=== PATIENT | female | born 1955 | race Caucasian/White ===

== ENCOUNTER 2018-11-16 09:45 | Emergency (ER) | payer MEDICARE, OTHER ==
[2018-11-16] MEDS ORDERED: MAG HYDROX/AL HYDROX/SIMETH SUSP 30 ML UDCUP PO ONE (10:53)
[2018-11-16] MEDS ORDERED: LIDOCAINE 2% VISCOUS SOLN 20 ML UDCUP PO ONE (10:53)
[2018-11-16] MEDS ORDERED: METOCLOPRAMIDE HCL ORAL SOLN 10 MG/10 ML UDCUP PO ONE (10:53)
--- NOTE | 2018-11-16 10:54 | ER Document Report ---
ED Medical Screen (RME) <CORI RAND - Last Filed: 11/16/18 10:53> <CARISA COLLINS - Last Filed: 11/16/18 13:42> - General Chief Complaint: Chest Pain Stated Complaint: CHEST PAIN Time Seen by Provider: 11/16/18 10:46 Notes: 63 years old female with a history of anxiety presents today with 2-month history of lower sternal chest pain. Sometimes is persistent sometimes comes and goes. Not related to any food or any activities. Denies any left arm numbness tingling sensation nausea vomiting or palpitation. Denies any diaphoresis. Examination of the abdomen shows sharp tenderness over the epigastrium as well as right upper quadrant noted. Also lower sternal tenderness noted on palpation. (CORI RAND) - HPI Notes: 11/16/18 13:42 (CARISA COLLINS) - Related Data Allergies/Adverse Reactions: No Known Allergies Allergy (Verified 11/16/18 09:49) Past Medical History - Social History Frequency of alcohol use: None Drug Abuse: None Family history: CAD, CVA, Hyperlipidemia, Hypertension - Past Medical History Cardiac Medical History: Reports: Hx Hypertension Renal/ Medical History: Denies: Hx Peritoneal Dialysis Psychiatric Medical History: Reports: Hx Anxiety, Hx Bipolar Disorder, Hx Depression Past Surgical History: Reports: Hx Breast Surgery, Hx Hysterectomy - Immunizations Immunizations up to date: Yes Hx Diphtheria, Pertussis, Tetanus Vaccination: Yes <CORI RADN - Last Filed: 11/16/18 10:53> - Vital signs Vitals: Temp Pulse Resp BP Pulse Ox 98.3 F 55 L 20 176/109 H 100 11/16/18 10:13 11/16/18 10:13 11/16/18 10:13 11/16/18 10:13 11/16/18 10:13 Course - Laboratory Result Diagrams: 11/16/18 11:45 11/16/18 11:45 <CARISA COLLINS - Last Filed: 11/16/18 13:42> - Re-evaluation Re-evalutation: 11/16/18 13:20 Vitals reviewed. Nursing notes reviewed. Patient is currently asymptomatic. Her EKG is unchanged from February 2013. (CARISA COLLINS) - Vital Signs Vital signs: Temp Pulse Resp BP Pulse Ox 98.3 F 55 L 20 176/109 H 100 11/16/18 10:13 11/16/18 10:13 11/16/18 10:13 11/16/18 10:13 11/16/18 10:13 - Laboratory Laboratory results interpreted by me: 11/16/18 11/16/18 11:45 11:45 RDW 14.8 H Carbon Dioxide 31 H Calcium 10.3 H - EKG Interpretation by Me Additional EKG results interpreted by me: 11/16/18 13:20 Interpreted by myself [id number]: Normal sinus rhythm, rate 59, normal axis, no ectopy, no STEMI, unchanged from 02/14/13 (CARISA COLLINS) Doctor's Discharge <CORI RAND - Last Filed: 11/16/18 10:53> <CARISA COLLINS - Last Filed: 11/16/18 13:42> - Discharge Clinical Impression: Chest pain Qualifiers: Chest pain type: unspecified Qualified Code(s): R07.9 - Chest pain, unspecified Referrals: LUIS BENSON MD [ACTIVE STAFF] - Follow up as needed
--- NOTE | 2018-11-16 11:45 | RADIOLOGY REPORT (SQ) ---
EXAM DESCRIPTION: CHEST SINGLE VIEW COMPLETED DATE/TIME: 11/16/2018 11:27 am REASON FOR STUDY: Chest pain COMPARISON: None. EXAM PARAMETERS: NUMBER OF VIEWS: One view. TECHNIQUE: Single frontal radiographic view of the chest acquired. RADIATION DOSE: NA LIMITATIONS: AP portable. Positioning. FINDINGS: LUNGS AND PLEURA: No opacities, masses or pneumothorax. No pleural effusion. MEDIASTINUM AND HILAR STRUCTURES: No masses. Contour normal. HEART AND VASCULAR STRUCTURES: Heart normal in size for technique. Normal vasculature. BONES: No acute findings. HARDWARE: None in the chest. OTHER: No other significant finding. IMPRESSION: NO ACUTE RADIOGRAPHIC FINDING IN THE CHEST. TECHNICAL DOCUMENTATION: JOB ID: [id number] [employer]- All Rights Reserved Reading location - IP/workstation name: [email or web address]
[2018-11-16 12:02] LABS: ABSOLUTE BASOPHILS # (AUTO) 0.1 10^3/uL (0.0-0.2); ABSOLUTE EOSINOPHILS # (AUTO) 0.3 10^3/uL (0.0-0.6); ABSOLUTE LYMPHOCYTES (AUTO) 2.7 10^3/uL (0.5-4.7); ABSOLUTE MONOCYTES (AUTO) 0.6 10^3/uL (0.1-1.4); ABSOLUTE NEUT (AUTO) 4.4 10^3/uL (1.7-8.2); BASOPHILS % (AUTO) 0.9 % (0-2); EOSINOPHILS % (AUTO) 3.3 % (0-6); HEMATOCRIT 43.2 % (36.0-47.0); HEMOGLOBIN 14.8 g/dL (12.0-15.5); LYMPHOCYTES % (AUTO) 33.9 % (13-45); MEAN CORPUSCULAR HEMOGLOBIN 28.7 pg (27.0-33.4); MEAN CORPUSCULAR HGB CONC 34.3 g/dL (32.0-36.0); MEAN CORPUSCULAR VOLUME 84 fl (80-97); MONOCYTES % (AUTO) 7.3 % (3-13); PLATELET COUNT 237 10^3/uL (150-450); RED BLOOD COUNT 5.17 10^6/uL (3.72-5.28); RED CELL DISTRIBUTION WIDTH 14.8 % (11.5-14.0); SEGMENTED NEUTROPHILS % (AUTO) 54.6 % (42-78); TOTAL CELLS COUNTED % (AUTO) 100 %; WHITE BLOOD COUNT 8.1 10^3/uL (4.0-10.5)
[2018-11-16 12:19] LABS: ALANINE AMINOTRANSFERASE 21 U/L (9-52); ALBUMIN 4.6 g/dL (3.5-5.0); ALKALINE PHOSPHATASE 79 U/L (38-126); ANION GAP 9 (5-19); ASPARTATE AMINO TRANSFERASE 21 U/L (14-36); BILIRUBIN,DIRECT 0.1 mg/dL (0.0-0.4); BILIRUBIN,TOTAL 0.3 mg/dL (0.2-1.3); BLOOD UREA NITROGEN 13 mg/dL (7-20); CALCIUM 10.3 mg/dL (8.4-10.2); CARBON DIOXIDE 31 mmol/L (22-30); CHLORIDE 100 mmol/L (98-107); CREATINE KINASE 38 U/L (30-135); GLUCOSE 92 mg/dL (75-110); SODIUM 140.2 mmol/L (137-145); TOTAL PROTEIN 7.1 g/dL (6.3-8.2)
[2018-11-16 12:31] LABS: TROPONIN I < 0.012 ng/mL
--- NOTE | 2018-11-16 12:53 | EKG REPORT ---
SEVERITY:- BORDERLINE ECG - SINUS RHYTHM NONSPECIFIC ST-T CHANGES- INFERIOR LEADS (LEADS III AND AVF).UNCHANGED FROM 02/14/13. : Confirmed by: Juvencio Barillas MD 16-Nov-2018 12:52:42
--- NOTE | 2018-11-16 13:19 | RADIOLOGY REPORT (SQ) ---
EXAM DESCRIPTION: U/S ABDOMEN LIMITED W/O DOP COMPLETED DATE/TIME: 11/16/2018 12:39 pm REASON FOR STUDY: Gallbladder disease COMPARISON: None. TECHNIQUE: Dynamic and static grayscale images acquired of the abdomen and recorded on PACS. Additio nal selected color Doppler and spectral images recorded. LIMITATIONS: None. FINDINGS: PANCREAS: No masses. Visualized pancreatic duct normal caliber. LIVER: No masses. Echotexture normal. LIVER VASCULATURE: Normal directional flow of the main portal vein and hepatic veins. GALLBLADDER: No stones. Normal wall thickness. No pericholecystic fluid. ULTRASOUND-DETECTED ADKINS'S SIGN: Negative. INTRAHEPATIC DUCTS AND COMMON DUCT: CBD and intrahepatic ducts normal caliber. No filling defects. INFERIOR VENA CAVA: Normal flow. AORTA: No aneurysm. RIGHT KIDNEY: Normal size. Normal echogenicity. No solid or suspicious masses. No hydronephrosis. No calcifications. PERITONEAL AND RIGHT PLEURAL SPACE: No ascites or effusions. OTHER: No other significant findings. IMPRESSION: NORMAL RIGHT UPPER QUADRANT ULTRASOUND. TECHNICAL DOCUMENTATION: JOB ID: [id number] [employer]- All Rights Reserved Reading location - IP/workstation name: [email or web address]
--- NOTE | 2018-11-16 13:54 | ER Document Report ---
ED General - General Chief Complaint: Chest Pain Stated Complaint: CHEST PAIN Time Seen by Provider: 11/16/18 10:46 - HPI Notes: Patient is a 63-year-old female that presents to the emergency department for chief complaint of chest tightness. Patient reports chest tightness for the last 2-3 months. She states that it lasts for anywhere from a few minutes to an hour at a time. The pain has been happening almost daily for the last 2 months. She denies any change in the pain today. She denies any aggravating or relieving factors. She has some associated epigastric discomfort and nausea but denies any vomiting, fevers, ch ills, shortness of breath, and palpitations. She had a negative stress test 5 years ago. She has an appointment with cardiology on 11/24/18. Past Medical History: Bipolar, hypertension Past Surgical History: Breast augmentation, hysterectomy Social History: Daily tobacco. Denies drugs and alcohol Family History: Reviewed and noncontributory for presenting illness Allergies: Reviewed, see documented allergy list. REVIEW OF SYSTEMS: CONSTITUTIONAL : No fever No chills No diaphoresis No recent illness EENT: No vision changes No congestion No sore throat CARDIOVASCULAR: chest pain No palpitations RESPIRATORY: No shortness of breath No cough No difficulty breathing GASTROINTESTINAL: No abdominal pain nausea No vomiting No diarrhea GENITOURINARY: No dysuria No hematuria No difficulty urinating MUSCULOSKELETAL: No back pain No leg pain No arm pain SKIN: No rashes No lesions LYMPHATIC: No swollen, enlarged glands. NEUROLOGICAL: No lightheadedness No headache No weakness No paresthesias PSYCHIATRIC: No anxiety No depression PHYSICAL EXAMINATION: Vital signs reviewed, nursing noted reviewed. GENERAL: Well-appearing, well-nourished and in no acute distress. HEAD: Atraumatic, normocephalic. EYES: Eyes appear normal, extraocular movements intact, sclera anicteric, conjunctiva are normal. ENT: nares patent, oropharynx clear without exudates. Moist mucous membranes. NECK: Normal range of motion, supple without lymphadenopathy LUNGS: Breath sounds clear to auscultation bilaterally and equal. No wheezes rales or rhonchi. HEART: Regular rate and rhythm without murmurs ABDOMEN: Soft, nontender, normoactive bowel sounds. No rebound, guarding, or rigidity. No masses appreciated. EXTREMITIES: Nontender, good range of motion, no pitting or edema. NEUROLOGICAL: No focal neurological deficits. Moves all extremities spontaneously Motor and sensory grossly intact on exam. PSYCH: Normal mood, normal affect. SKIN: Warm, Dry, normal turgor, no rashes or lesions noted on exposed skin - Related Data Allergies/Adverse Reactions: No Known Allergies Allergy (Verified 11/16/18 09:49) Past Medical History - Social History Smoking Status: Current Every Day Smoker Frequency of alcohol use: None Drug Abuse: None Family History: CAD, CVA, Hypertension Patient has suicidal ideation: No Patient has homicidal ideation: No - Past Medical History Cardiac Medical History: Reports: Hx Hypertension Renal/ Medical History: Denies: Hx Peritoneal Dialysis Psychiatric Medical History: Reports: Hx Anxiety, Hx Bipolar Disorder, Hx Depression Past Surgical History: Reports: Hx Breast Surgery, Hx Hysterectomy - Immunizations Immunizations up to date: Yes Hx Diphtheria, Pertussis, Tetanus Vaccination: Yes Physical Exam - Vital signs Vitals: Temp Pulse Resp BP Pulse Ox 98.3 F 55 L 20 176/109 H 100 11/16/18 10:13 11/16/18 10:13 11/16/18 10:13 11/16/18 10:13 11/16/18 10:13 Course - Re-evaluation Re-evalutation: 11/16/18 13:56 Vitals reviewed. Nursing notes reviewed. EKG unchanged from 2013. Patient is currently asymptomatic. 11/16/18 16:00 Patient's initial lab work was unremarkable. Her troponin was negative. Chest x-ray showed no acute process. Patient's pain was epigastric and right upper quadrant ultrasound was ordered in triage, this was also negative. Patient symptoms have been ongoing for the last few months however they have been intermittent in nature. Repeat troponin was ordered and has remained negative. Patient's blood pressure has been significantly elevated throughout her stay here. She is on the maximum dose of enalapril and atenolol. She is also taking amlodipine. Patient was given 1 extra dose of amlodipine in the emergency room for her blood pressure. She has an appointment with cardiology on 11/24/18 and was encouraged to keep that appointment for blood pressure recheck and change in medications. She will also discuss getting a stress test done as an outpatient. I do not feel her symptoms currently are acute ACS. She is currently asymptomatic and will be discharged home in stable condition. Chest X-Ray 11/16/18 10:52 IMPRESSION: NO ACUTE RADIOGRAPHIC FINDING IN THE CHEST. Abdomen Ultrasound 11/16/18 10:53 IMPRESSION: NORMAL RIGHT UPPER QUADRANT ULTRASOUND. Laboratory 11/16/18 11/16/18 11/16/18 11:45 11:45 11:45 WBC 8.1 RBC 5.17 Hgb 14.8 Hct 43.2 MCV 84 MCH 28.7 MCHC 34.3 RDW 14.8 H Plt Count 237 Seg Neutrophils % 54.6 Lymphocytes % 33.9 Monocytes % 7.3 Eosinophils % 3.3 Basophils % 0.9 Absolute Neutrophils 4.4 Absolute Lymphocytes 2.7 Absolute Monocytes 0.6 Absolute Eosinophils 0.3 Absolute Basophils 0.1 Sodium 140.2 Potassium 4.0 Chloride 100 Carbon Dioxide 31 H Anion Gap 9 BUN 13 Creatinine 0.81 Est GFR ( Amer) > 60 Est GFR (Non-Af Amer) > 60 Glucose 92 Calcium 10.3 H Total Bilirubin 0.3 Direct Bilirubin 0.1 Neonat Total Bilirubin Not Reportable Neonat Direct Bilirubin Not Reportable Neonat Indirect Bili Not Reportable AST 21 ALT 21 Alkaline Phosphatase 79 Creatine Kinase 38 CK-MB (CK-2) 0.50 Troponin I < 0.012 Total Protein 7.1 Albumin 4.6 Lipase 11/16/18 11/16/18 11:45 14:40 WBC RBC Hgb Hct MCV MCH MCHC RDW Plt Count Seg Neutrophils % Lymphocytes % Monocytes % Eosinophils % Basophils % Absolute Neutrophils Absolute Lymphocytes Absolute Monocytes Absolute Eosinophils Absolute Basophils Sodium Potassium Chloride Carbon Dioxide Anion Gap BUN Creatinine Est GFR ( Amer) Est GFR (Non-Af Amer) Glucose Calcium Total Bilirubin Direct Bilirubin Neonat Total Bilirubin Neonat Direct Bilirubin Neonat Indirect Bili AST ALT Alkaline Phosphatase Creatine Kinase CK-MB (CK-2) Troponin I < 0.012 Total Protein Albumin Lipase 66.5 11/16/18 16:01 - Vital Signs Vital signs: Temp Pulse Resp BP Pulse Ox 98.3 F 55 L 20 208/108 H 95 11/16/18 10:13 11/16/18 10:13 11/16/18 15:08 11/16/18 15:42 11/16/18 15:08 - Laboratory Result Diagrams: 11/16/18 11:45 11/16/18 11:45 Laboratory results interpreted by me: 11/16/18 11/16/18 11:45 11:45 RDW 14.8 H Carbon Dioxide 31 H Calcium 10.3 H - EKG Interpretation by Me Additional EKG results interpreted by me: 11/16/18 13:55 Interpreted by myself [id number]: Normal sinus rhythm, rate 59, normal axis, no ectopy, no STEMI, no significant change from 08/10/13 Discharge - Discharge Clinical Impression: Chest pain Qualifiers: Chest pain type: unspecified Qualified Code(s): R07.9 - Chest pain, unspecified Hypertension Qualifiers: Hypertension type: unspecified Qualified Code(s): I10 - Essential (primary) hypertension Condition: Stable Disposition: HOME, SELF-CARE Instructions: Anxiety ([facility]), Chest Pain of Unclear Cause ([facility]) Additional Instructions: Please return to the emergency department if you have any worsening, or concern of your symptoms. Please return to the emergency department if you develop chest pain, difficulty breathing, severe abdominal pain, or ongoing vomiting. Please follow-up with your primary care physician in 2-3 days and any other recommended physicians. If prescribed, take all medications as directed. If you have any questions or concerns do not hesitate to return the emergency department for evaluation. Keep your appointment on November 24 with [facility] for follow-up and to discuss your blood pressure medications Forms: Elevated Blood Pressure Referrals: LUIS BENSON MD [ACTIVE STAFF] - Follow up as needed
[2018-11-16] MEDS ORDERED: AMLODIPINE BESYLATE 5 MG TABLET PO ONE (15:33)
[2018-11-16 15:43] VITALS: BP 208/108
== END 2018-11-16 16:25 | disposition home or self-care (01) ==
LOC: ER 09:45
DX: R07.9 Chest pain, unspecified (principal); I10 Essential (primary) hypertension; R10.13 Epigastric pain; R11.0 Nausea; F17.200 Nicotine dependence, unspecified, uncomplicated
CPT/HCPCS: 93005; 99285; 36415; 82553; 82550; 83690; 85025; 80053; 84484; 71045; 76705; 93010; J3490; A9270 ×2

== ENCOUNTER 2020-01-03 15:21 | Emergency (ER) | payer MEDICARE, OTHER ==
--- NOTE | 2020-01-03 15:51 | ER Document Report ---
ED Medical Screen (RME) - General Chief Complaint: Headache Stated Complaint: HEADACHE,DIZZINESS Time Seen by Provider: 01/03/20 15:41 Primary Care Provider: MORENITA KNOWLES MD [Primary Care Provider] - Follow up as needed TRAVEL OUTSIDE OF THE [place] IN LAST 30 DAYS: No - HPI Notes: 01/03/20 15:48 Patient is a 64-year-old female with a history of mental health disorders prese nts with spouse with concern of altered mental status with last known normal sometime between 10 AM and 12 PM today. states that she was out on a walk and fell 3 times to the ground which was witnessed. Patient did not hit her head or lose consciousness. Patient has been altered since then. Patient was complaining of dizziness at the time as well is having some chest pains. Patient states that she is currently feeling well and has no pain at all. Spouse states that she is generally back to baseline, but is having some memory issues and some speech issues. I have treated and performed a rapid initial assessment of this patient. A comprehensive ED assessment and evaluation of the patient, analysis of test results and completion of medical decision making process will be conducted by additional ED providers. PHYSICAL EXAMINATION: GENERAL: Well-appearing, well-nourished and in no acute distress. A&O to person/place/time, but cannot recall some events today (i.e. eating lunch etc). Answers questions appropriately. Head: Atraumatic, no reeves sign or bogginess Ears: No hemotympanum Eyes: No raccoon eyes, PERRLA, EOMI bilaterally. MS: pt is ambulating w/o any difficulty or report of pain Neuro: NIH 1 for some slurring of speech, GCS 15, cranial nerves grossly intact. - Related Data Allergies/Adverse Reactions: No Known Allergies Allergy (Verified 05/15/19 09:41) Past Medical History - Social History Family history: CAD, CVA, Hyperlipidemia, Hypertension - Past Medical History Cardiac Medical History: Reports: Hx Hypertension - TAKES BETA EVELYN Denies: Hx Coronary Artery Disease, Hx Heart Attack Pulmonary Medical History: Denies: Hx Asthma, Hx Bronchitis, Hx COPD, Hx Pneumonia Neurological Medical History: Denies: Hx Cerebrovascular Accident, Hx Seizures Renal/ Medical History: Denies: Hx Peritoneal Dialysis Musculoskeltal Medical History: Denies Hx Arthritis Psychiatric Medical History: Reports: Hx Anxiety, Hx Bipolar Disorder, Hx Depression Past Surgical History: Reports: Hx Breast Surgery, Hx Hysterectomy - Immunizations Immunizations up to date: Yes Hx Diphtheria, Pertussis, Tetanus Vaccination: Yes Physical Exam - Vital signs Vitals: Temp Pulse Resp BP Pulse Ox 97.4 F 54 L 18 152/99 H 96 01/03/20 15:29 01/03/20 15:29 01/03/20 15:29 01/03/20 15:29 01/03/20 15:29 Course - Vital Signs Vital signs: Temp Pulse Resp BP Pulse Ox 97.4 F 54 L 18 152/99 H 96 01/03/20 15:29 01/03/20 15:29 01/03/20 15:29 01/03/20 15:29 01/03/20 15:29 Doctor's Discharge - Discharge Referrals: MORENITA KNOWLES MD [Primary Care Provider] - Follow up as needed
--- NOTE | 2020-01-03 16:19 | RADIOLOGY REPORT (SQ) ---
EXAM DESCRIPTION: CHEST 2 VIEWS COMPLETED DATE/TIME: 01/03/2020 4:03 pm REASON FOR STUDY: AMS, CP COMPARISON: AP view of the chest from 11/16/2018 EXAM PARAMETERS: NUMBER OF VIEWS: Two views. TECHNIQUE: An AP view of the chest was obtained.. RADIATION DOSE: NA LIMITATIONS: none FINDINGS: LUNGS AND PLEURA: No consolidation, pleural effusion or pneumothorax. MEDIASTINUM AND HILAR STRUCTURES: No mediastinal or hilar contour abnormality. HEART AND VASCULAR STRUCTURES: The cardiac silhouette and pulmonary vasculature are within normal gomes its. BONES: No acute findings. HARDWARE: None in the chest. OTHER: No other finding. IMPRESSION: No acute cardiopulmonary process. TECHNICAL DOCUMENTATION: JOB ID: [id number] 2010 [employer]- All Rights Reserved Reading location - IP/workstation name: [email or web address]
--- NOTE | 2020-01-03 16:20 | RADIOLOGY REPORT (SQ) ---
EXAM DESCRIPTION: CT HEAD WITHOUT COMPLETED DATE/TIME: 01/03/2020 4:00 pm REASON FOR STUDY: altered mental status, falls COMPARISON: None. TECHNIQUE: Axial images acquired through the brain without intravenous contrast. Images reviewed wi th bone, brain and subdural windows. Additional sagittal and coronal reconstructions were generated. Images stored on PACS. All CT scanners at this facility use dose modulation, iterative reconstruction, and/or weight based d osing when appropriate to reduce radiation dose to as low as reasonably achievable (ALARA). [facility]: Dose Right [facility]: CareDose [facility]: Dose Right [facility]: Teradose 4D [facility]: [employer] RADIATION DOSE: mGy. LIMITATIONS: None. FINDINGS: VENTRICLES: Normal size and contour. CEREBRUM: Mild cortical atrophy. No masses. No hemorrhage. No midline shift. No evidence for acut e infarction. Areas of low density in the white matter most likely chronic small vessel ischemic sanchez ges. CEREBELLUM: No masses. No hemorrhage. No alteration of density. No evidence for acute infarction. EXTRAAXIAL SPACES: No fluid collections. No masses. ORBITS AND GLOBE: No intra- or extraconal masses. Normal contour of globe without masses. CALVARIUM: No fracture. PARANASAL SINUSES: No fluid or mucosal thickening. SOFT TISSUES: No mass or hematoma. OTHER: No other significant finding. IMPRESSION: Involutional changes with mild chronic microvascular ischemia. No acute intracranial im aging finding. EVIDENCE OF ACUTE STROKE: NO. COMMENT: Quality ID # [id number]: Final reports with documentation of one or more dose reduction techniques (e.g., Automated exposure control, adjustment of the mA and/or kV according to patient size, use of iterative reconstruction technique) TECHNICAL DOCUMENTATION: JOB ID: [id number] 2010 [employer]- All Rights Reserved Reading location - IP/workstation name: [email or web address]
--- NOTE | 2020-01-03 16:24 | RADIOLOGY REPORT (SQ) ---
EXAM DESCRIPTION: CT CERVICAL SPINE WITHOUT COMPLETED DATE/TIME: 01/03/2020 4:00 pm REASON FOR STUDY: altered mental status, falls COMPARISON: None. TECHNIQUE: Axial images acquired through the cervical spine without intravenous contrast. Images re viewed with lung, soft tissue and bone windows. Reconstructed coronal and sagittal MPR images review ed. Images stored on PACS. All CT scanners at this facility use dose modulation, iterative reconstruction, and/or weight based d osing when appropriate to reduce radiation dose to as low as reasonably achievable (ALARA). [facility]: Dose Right [facility]: CareDose [facility]: Dose Right [facility]: Teradose 4D [facility]: [employer] RADIATION DOSE: CT Rad equipment meets quality standard of care and radiation dose reduction techniq ues were employed. CTDIvol: 22.7 - 53.2 mGy. DLP: 1498 mGy-cm. LIMITATIONS: None. FINDINGS: ALIGNMENT: Anatomic. MINERALIZATION: Normal. VERTEBRAL BODIES: The cervical vertebral body heights are preserved. There is no fracture. DISCS: Evaluation of the spinal canal for stenosis or cord compression is limited due to the absence of intrathecal contrast. The cervical intervertebral disc spaces are preserved. FACETS, LATERAL MASSES, POSTERIOR ELEMENTS: No acute fracture or malalignment. HARDWARE: None in the spine. VISUALIZED RIBS: No fractures. LUNG APICES AND SOFT TISSUES: The right lobe of the thyroid gland is heterogeneous. OTHER: No other finding. IMPRESSION: No acute fracture or malalignment of the cervical spine. TECHNICAL DOCUMENTATION: JOB ID: [id number] Quality ID # [id number]: Final reports with documentation of one or more dose reduction techniques (e.g., Au tomated exposure control, adjustment of the mA and/or kV according to patient size, use of iterative reconstruction technique) 2010 [employer]- All Rights Reserved Reading location - IP/workstation name: [email or web address]
[2020-01-03 16:41] LABS: ABSOLUTE BASOPHILS # (AUTO) 0.1 10^3/uL (0.0-0.2); ABSOLUTE EOSINOPHILS # (AUTO) 0.1 10^3/uL (0.0-0.6); ABSOLUTE LYMPHOCYTES (AUTO) 2.9 10^3/uL (0.5-4.7); ABSOLUTE MONOCYTES (AUTO) 0.7 10^3/uL (0.1-1.4); ABSOLUTE NEUT (AUTO) 4.2 10^3/uL (1.7-8.2); BASOPHILS % (AUTO) 0.8 % (0-2); EOSINOPHILS % (AUTO) 1.7 % (0-6); HEMATOCRIT 40.2 % (36.0-47.0); HEMOGLOBIN 13.6 g/dL (12.0-15.5); LYMPHOCYTES % (AUTO) 36.1 % (13-45); MEAN CORPUSCULAR HEMOGLOBIN 28.4 pg (27.0-33.4); MEAN CORPUSCULAR HGB CONC 33.7 g/dL (32.0-36.0); MEAN CORPUSCULAR VOLUME 84 fl (80-97); PLATELET COUNT 213 10^3/uL (150-450); RED BLOOD COUNT 4.77 10^6/uL (3.72-5.28); RED CELL DISTRIBUTION WIDTH 15.5 % (11.5-14.0); SEGMENTED NEUTROPHILS % (AUTO) 52.4 % (42-78); TOTAL CELLS COUNTED % (AUTO) 100 %
[2020-01-03 16:50] LABS: APPEARANCE,URINE CLEAR; BILIRUBIN,URINE NEGATIVE (NEGATIVE); COLOR,URINE YELLOW; GLUCOSE, URINE NEGATIVE (NEGATIVE); KETONES,URINE NEGATIVE (NEGATIVE); PROTEIN,URINE NEGATIVE (NEGATIVE); URINE SPECIFIC GRAVITY 1.013; UROBILINOGEN,URINE NEGATIVE mg/dL (<2.0)
[2020-01-03 16:56] LABS: ALBUMIN 4.5 g/dL (3.5-5.0); ALKALINE PHOSPHATASE 86 U/L (38-126); ANION GAP 7 (5-19); ASPARTATE AMINO TRANSFERASE 27 U/L (14-36); BILIRUBIN,TOTAL 0.4 mg/dL (0.2-1.3); BLOOD UREA NITROGEN 25 mg/dL (7-20); CALCIUM 9.8 mg/dL (8.4-10.2); CARBON DIOXIDE 32 mmol/L (22-30); CHLORIDE 101 mmol/L (98-107); GLUCOSE 94 mg/dL (75-110); POTASSIUM 4.4 mmol/L (3.6-5.0); TOTAL PROTEIN 7.2 g/dL (6.3-8.2)
[2020-01-03 17:22] LABS: URINE AMPHETAMINES SCREEN NEGATIVE; URINE BARBITURATES SCREEN NEGATIVE; URINE COCAINE SCREEN NEGATIVE; URINE MARIJUANA (THC) SCREEN NEGATIVE; URINE METHADONE SCREEN NEGATIVE; URINE PHENCYCLIDINE SCREEN NEGATIVE
[2020-01-03 17:27] LABS: URINE BENZODIAZEPINES SCREEN UNCONFIRMED POSITIVE
--- NOTE | 2020-01-03 18:00 | ER Document Report ---
ED General - General Chief Complaint: Headache Stated Complaint: HEADACHE,DIZZINESS Time Seen by Provider: 01/03/20 15:41 Primary Care Provider: MORENITA KNOWLES MD [Primary Care Provider] - Follow up as needed Information source: Patient Notes: Patient is a 64-year-old female presenting to the emergency department chief complaint of headache. TRAVEL OUTSIDE OF THE [place] IN LAST 30 DAYS: No - HPI Onset: This morning Onset/Duration: Gradual, Better Quality of pain: Achy Severity: Mild Pain Level: 1 Associated symptoms: None Exacerbated by: Denies Relieved by: Denies Similar symptoms previously: No Recently seen / treated by doctor: No - Related Data Allergies/Adverse Reactions: No Known Allergies Allergy (Verified 05/15/19 09:41) Home Medications: Xanax, Depakote, Trazadone, Cogentin, Geodone, Zoloft, Amlodipine, Enalapril, Lipitos, Aspirin, Clonidine. Past Medical History - General Information source: Patient, Relative - Social History Smoking Status: Former Smoker Frequency of alcohol use: None Drug Abuse: None Lives with: Spouse/Significant other Family History: CAD, CVA, Hypertension Patient has suicidal ideation: No Patient has homicidal ideation: No - Past Medical History Cardiac Medical History: Reports: Hx Hypertension - TAKES BETA EVELYN Denies: Hx Coronary Artery Disease, Hx Heart Attack Pulmonary Medical History: Denies: Hx Asthma, Hx Bronchitis, Hx COPD, Hx Pneumonia Neurological Medical History: Denies: Hx Cerebrovascular Accident, Hx Seizures Renal/ Medical History: Denies: Hx Peritoneal Dialysis Musculoskeletal Medical History: Denies Hx Arthritis Psychiatric Medical History: Reports: Hx Anxiety, Hx Bipolar Disorder, Hx Depression Past Surgical History: Reports: Hx Breast Surgery, Hx Hysterectomy - Immunizations Immunizations up to date: Yes Hx Diphtheria, Pertussis, Tetanus Vaccination: Yes Review of Systems - Review of Systems Notes: REVIEW OF SYSTEMS: CONSTITUTIONAL : Denies fever, chills, or sweats. Denies recent illness. EENT: Denies eye, ear, throat, or mouth pain or symptoms. Denies nasal or sinus congestion. CARDIOVASCULAR: Denies chest pain. RESPIRATORY: Denies cough, cold, or chest congestion. Denies shortness of breath, difficulty breathing, or wheezing. GASTROINTESTINAL: Denies abdominal pain. Denies nausea, vomiting, or diarrhea. Denies constipation. GENITOURINARY: Denies difficulty urinating, painful urination, burning, frequency, or blood in urine. MUSCULOSKELETAL: Per HPI SKIN: Denies rash or skin lesions. HEMATOLOGIC : Denies easy bruising or bleeding. NEUROLOGICAL: Per HPI PSYCHIATRIC: Denies suicidal or homicidal ideations 10 Systems are negative unless otherwise specified above Physical Exam - Vital signs Vitals: Temp Pulse Resp BP Pulse Ox 97.4 F 54 L 18 152/99 H 96 01/03/20 15:29 01/03/20 15:29 01/03/20 15:29 01/03/20 15:29 01/03/20 15:29 - Notes Notes: PHYSICAL EXAMINATION: GENERAL: Well-appearing, well-nourished and in no acute distress. HEAD: Atraumatic, normocephalic. EYES: Pupils equal round and reactive to light, extraocular movements intact, sclera anicteric, conjunctiva are normal. ENT: nares patent, oropharynx clear without exudates. Moist mucous membranes. NECK: Normal range of motion, supple without lymphadenopathy, no appreciable JVD LUNGS: Lungs clear to auscultation bilaterally and equal. No wheezes rales or rhonchi. HEART: Regular rate and rhythm without murmurs ABDOMEN: Soft, nontender, normal bowel sounds. No guarding, no rebound. No masses appreciated. EXTREMITIES: Active full range of motion, no pitting or edema. No cyanosis. 2+ pulses x4 NEUROLOGICAL: No focal neurological deficits. Moves all extremities spontaneously and on command. Patient does show bilateral lower extremity weakness however states that she does have difficulties with her lower extremities. Patient is able to identify all family members in the room. There is no nystagmus no facial asymmetry no part tongue protrusion deviation patient is alert and oriented x3 Suhail Coma Scale of 15. SKIN: Warm, Dry, and intact. Normal turgor, no rashes or lesions noted. Course - Re-evaluation Re-evalutation: 01/03/20 17:59 Laboratory and radiologic studies have been reviewed. I did discuss with patient and family the possibility of intracranial pathology such as TIA versus CVA however family states that they believe the patient would be very uncomfortable in the hospital and would not get any rest at this time since all the labs and radiologic studies are negative they are requesting discharge home. The patient is alert and oriented can name all family members in the room and I feel this is a viable option. They are instructed to return to the emergency department for worsening symptoms. I also advised a follow-up with her primary care and their mental health provider for further discussion of use of her Xanax which is prescribed. Patient will be discharged in stable condition. 01/03/20 19:02 - Vital Signs Vital signs: Temp Pulse Resp BP Pulse Ox 97.4 F 54 L 6 L 152/99 H 98 01/03/20 15:29 01/03/20 15:29 01/03/20 17:24 01/03/20 15:29 01/03/20 17:24 - Laboratory Result Diagrams: 01/03/20 16:17 01/03/20 16:17 Laboratory results interpreted by me: 01/03/20 01/03/20 16:17 16:17 RDW 15.5 H Carbon Dioxide 32 H BUN 25 H - Diagnostic Test Radiology reviewed: Reports reviewed - EKG Interpretation by Me EKG shows normal: Sinus rhythm Rate: Normal Rhythm: NSR When compared to previous EKG there are: No significant change Discharge - Discharge Clinical Impression: Accelerated hypertension, Medication side effect Accidental fall Qualifiers: Encounter type: initial encounter Qualified Code(s): W19.XXXA - Unspecified fa ll, initial encounter Headache Qualifiers: Headache type: other headache syndrome Qualified Code(s): G44.89 - Other headache syndrome Condition: Stable Disposition: HOME, SELF-CARE Additional Instructions: Follow-up with your primary care provider in the next couple of days please keep your mental health appointment in 3 weeks as scheduled. Recommend decreasing your caffeine intake I believe that the reason for the fall today may have been secondary to Xanax use and generalized weakness. I think your headache is secondary to elevated blood pressure please make sure you take your medications appropriately. Please return to the emergency department for worsening symptoms. Referrals: MORENITA KNOWLES MD [Primary Care Provider] - Follow up as needed
[2020-01-03 19:01] VITALS: BP 188/118
--- NOTE | 2020-01-03 19:44 | EKG REPORT ---
SEVERITY:- NORMAL ECG - SINUS RHYTHM : Confirmed by: Hortensia Lane MD 03-Jan-2020 19:43:33
== END 2020-01-03 19:05 | disposition home or self-care (01) ==
LOC: ER 15:21
DX: Z04.3 Encounter for examination and observation following other accident (principal); G44.89 Other headache syndrome; I10 Essential (primary) hypertension; T50.905A Adverse effect of unspecified drugs, medicaments and biological substances, initial encounter; R53.1 Weakness; F41.9 Anxiety disorder, unspecified; F31.9 Bipolar disorder, unspecified; Z79.899 Other long term (current) drug therapy; Z79.82 Long term (current) use of aspirin; Z87.891 Personal history of nicotine dependence
CPT/HCPCS: 36415; 70450; 71046; 72125; 80053; 80307; 81001; 82962; 84484; 85025; 87086; 93005; 93010; 99284

== ENCOUNTER 2020-01-11 08:55 | Emergency (ER) | payer MEDICARE, OTHER ==
[2020-01-11 10:39] LABS: APPEARANCE,URINE CLEAR; BILIRUBIN,URINE NEGATIVE (NEGATIVE); COLOR,URINE YELLOW; GLUCOSE, URINE NEGATIVE (NEGATIVE); KETONES,URINE NEGATIVE (NEGATIVE); LEUKOCYTE ESTERASE,URINE NEGATIVE (NEGATIVE); NITRITE,URINE NEGATIVE (NEGATIVE); PROTEIN,URINE NEGATIVE (NEGATIVE); URINE SPECIFIC GRAVITY 1.011; UROBILINOGEN,URINE NEGATIVE mg/dL (<2.0)
[2020-01-11 10:40] LABS: ABSOLUTE BASOPHILS # (AUTO) 0.1 10^3/uL (0.0-0.2); ABSOLUTE EOSINOPHILS # (AUTO) 0.2 10^3/uL (0.0-0.6); ABSOLUTE LYMPHOCYTES (AUTO) 2.4 10^3/uL (0.5-4.7); ABSOLUTE MONOCYTES (AUTO) 0.5 10^3/uL (0.1-1.4); ABSOLUTE NEUT (AUTO) 3.5 10^3/uL (1.7-8.2); BASOPHILS % (AUTO) 0.8 % (0-2); EOSINOPHILS % (AUTO) 2.4 % (0-6); HEMATOCRIT 39.8 % (36.0-47.0); HEMOGLOBIN 13.5 g/dL (12.0-15.5); LYMPHOCYTES % (AUTO) 36.4 % (13-45); MEAN CORPUSCULAR HEMOGLOBIN 28.4 pg (27.0-33.4); MEAN CORPUSCULAR VOLUME 84 fl (80-97); MONOCYTES % (AUTO) 7.5 % (3-13); PLATELET COUNT 224 10^3/uL (150-450); RED BLOOD COUNT 4.76 10^6/uL (3.72-5.28); RED CELL DISTRIBUTION WIDTH 15.3 % (11.5-14.0); SEGMENTED NEUTROPHILS % (AUTO) 52.9 % (42-78); TOTAL CELLS COUNTED % (AUTO) 100 %; WHITE BLOOD COUNT 6.5 10^3/uL (4.0-10.5)
--- NOTE | 2020-01-11 10:40 | RADIOLOGY REPORT (SQ) ---
EXAM DESCRIPTION: CT HEAD WITHOUT COMPLETED DATE/TIME: 01/11/2020 10:29 am REASON FOR STUDY: accelerated htn/headache COMPARISON: None. TECHNIQUE: Axial images acquired through the brain without intravenous contrast. Images reviewed wi th bone, brain and subdural windows. Images stored on PACS. All CT scanners at this facility use dose modulation, iterative reconstruction, and/or weight based d osing when appropriate to reduce radiation dose to as low as reasonably achievable (ALARA). [facility]: Dose Right [facility]: CareDose [facility]: Dose Right [facility]: Teradose 4D [facility]: Smart [employer] RADIATION DOSE: CT Rad equipment meets quality standard of care and radiation dose reduction techniq ues were employed. CTDIvol: 53.2 mGy. DLP: 991 mGy-cm. mGy. LIMITATIONS: None. FINDINGS: VENTRICLES: Normal size and contour. CEREBRUM: No masses. No hemorrhage. No midline shift. No evidence for acute infarction. Normal gra y/white matter differentiation. No areas of low density in the white matter. CEREBELLUM: No masses. No hemorrhage. No alteration of density. No evidence for acute infarction. EXTRAAXIAL SPACES: No fluid collections. No masses. ORBITS AND GLOBE: No intra- or extraconal masses. Normal contour of globe without masses. CALVARIUM: No fracture. PARANASAL SINUSES: No fluid or mucosal thickening. SOFT TISSUES: No mass or hematoma. OTHER: No other significant finding. IMPRESSION: NORMAL BRAIN CT WITHOUT CONTRAST. EVIDENCE OF ACUTE STROKE: NO. COMMENT: Quality ID # [id number]: Final reports with documentation of one or more dose reduction techniques (e.g., Automated exposure control, adjustment of the mA and/or kV according to patient size, use of iterative reconstruction technique) TECHNICAL DOCUMENTATION: JOB ID: [id number] 2010 [employer]- All Rights Reserved Reading location - IP/workstation name: [email or web address]
--- NOTE | 2020-01-11 10:51 | RADIOLOGY REPORT (SQ) ---
EXAM DESCRIPTION: CHEST SINGLE VIEW COMPLETED DATE/TIME: 01/11/2020 10:38 am REASON FOR STUDY: htn COMPARISON: Prior chest films 01/03/2020, 11/16/2018, 02/14/2013 EXAM PARAMETERS: NUMBER OF VIEWS: One view. TECHNIQUE: Single frontal radiographic view of the chest acquired. RADIATION DOSE: NA LIMITATIONS: None. FINDINGS: LUNGS AND PLEURA: No acute infiltrates. Chronic blunting right lateral costophrenic sulcu s. No pneumothorax. No pulmonary nodules. MEDIASTINUM AND HILAR STRUCTURES: No masses. Contour normal. HEART AND VASCULAR STRUCTURES: Mild cardiomegaly, stable BONES: No acute findings. HARDWARE: None in the chest. OTHER: No other significant finding. IMPRESSION: NO ACUTE RADIOGRAPHIC FINDING IN THE CHEST. TECHNICAL DOCUMENTATION: JOB ID: [id number] 2010 [employer]- All Rights Reserved Reading location - IP/workstation name: [email or web address]
[2020-01-11 10:55] LABS: URINE AMPHETAMINES SCREEN NEGATIVE; URINE BARBITURATES SCREEN NEGATIVE; URINE BENZODIAZEPINES SCREEN NEGATIVE; URINE COCAINE SCREEN NEGATIVE; URINE MARIJUANA (THC) SCREEN NEGATIVE; URINE METHADONE SCREEN NEGATIVE; URINE PHENCYCLIDINE SCREEN NEGATIVE
[2020-01-11 10:56] LABS: ALBUMIN 4.3 g/dL (3.5-5.0); ALKALINE PHOSPHATASE 74 U/L (38-126); ANION GAP 7 (5-19); ASPARTATE AMINO TRANSFERASE 23 U/L (14-36); BILIRUBIN,DIRECT 0.3 mg/dL (0.0-0.4); BILIRUBIN,TOTAL 0.4 mg/dL (0.2-1.3); BLOOD UREA NITROGEN 23 mg/dL (7-20); CALCIUM 9.8 mg/dL (8.4-10.2); CARBON DIOXIDE 32 mmol/L (22-30); CHLORIDE 100 mmol/L (98-107); GLUCOSE 91 mg/dL (75-110); POTASSIUM 4.6 mmol/L (3.6-5.0); TOTAL PROTEIN 7.2 g/dL (6.3-8.2)
[2020-01-11 11:18] LABS: NT PRO BNP 740 pg/mL (<125)
[2020-01-11 11:27] LABS: TROPONIN I < 0.012 ng/mL
[2020-01-11 13:06] VITALS: BP 179/102
--- NOTE | 2020-01-11 13:10 | ER Document Report ---
Entered by LULU COX SCRIBE 01/11/20 1001 Acting as scribe for:MALINA GOMEZ MD ED Blood Pressure Problem - General Chief Complaint: High Blood Pressure Stated Complaint: HEADACHE,CHEST PAIN Time Seen by Provider: 01/11/20 09:25 Primary Care Provider: MORENITA KNOWLES MD [Primary Care Provider] - Follow up as needed Information source: Patient Notes: This 64-year-old female patient presents to the emergency department today with complaints of elevated blood pressures for the last week. Patient states that prior to arrival today her blood pressure was "nish high", stating it was 149/107. Patient is on enalapril, metoprolol, and clonidine for blood pressure and she has not missed any of her medications. Patient does add that her " took her anxiety medication from here x1 week ago because he told her she did not need it, that relying on medication was not the answer". This medication is Xanax. Patient brought her Xanax with her but has not taken it today. Patient also complains of headaches, blurry vision, and chest tightness. Patient denies any homicidal or suicidal ideation. TRAVEL OUTSIDE OF THE [place] IN LAST 30 DAYS: No - Related Data Allergies/Adverse Reactions: No Known Allergies Allergy (Verified 05/15/19 09:41) Past Medical History - General Information source: Patient - Social History Smoking Status: Former Smoker - quit Dec 2019 Cigarette use (# per day): No Frequency of alcohol use: None Drug Abuse: None Lives with: Family Family History: CAD, CVA, Hypertension Patient has suicidal ideation: No Patient has homicidal ideation: No - Past Medical History Cardiac Medical History: Reports: Hx Hypertension Psychiatric Medical History: Reports: Hx Anxiety, Hx Bipolar Disorder, Hx Depression Past Surgical History: Reports: Hx Breast Surgery, Hx Hysterectomy - Immunizations Immunizations up to date: Yes Hx Diphtheria, Pertussis, Tetanus Vaccination: Yes Review of Systems - Review of Systems Constitutional: No symptoms reported EENT: See HPI, Blurred vision Cardiovascular: See HPI, Chest pain, Other - elevated blood pressure Respiratory: No symptoms reported Gastrointestinal: No symptoms reported Genitourinary: No symptoms reported Female Genitourinary: No symptoms reported Musculoskeletal: No symptoms reported Skin: No symptoms reported Hematologic/Lymphatic: No symptoms reported Neurological/Psychological: See HPI, Anxiety, Headaches -: Yes All other systems reviewed and negative Physical Exam - Vital signs Vitals: Temp Pulse Resp BP Pulse Ox 97.6 F 50 L 20 156/101 H 95 01/11/20 09:05 01/11/20 09:05 01/11/20 09:05 01/11/20 09:05 01/11/20 09:05 - Notes Notes: Physical Exam: General: Alert, appears well. HEENT: Normocephalic. Atraumatic. PERRL. Extraocular movements intact. No posterior oropharynx erythema or exudate, airway is patent. TMs are clear and non-bulging bilaterally. Normal funduscopic exam. Neck: Supple. Non-tender. Respiratory: No respiratory distress. Clear and equal breath sounds bilaterally. Cardiovascular: Regular rate and rhythm. Abdominal: Normal Inspection. Non-tender. No distension. Normal Bowel Sounds. Back: No gross abnormalities. Extremities: Moves all four extremities. Upper extremities: Normal inspection. Normal ROM. Lower extremities: Normal inspection. No edema. Normal ROM. Neurological: Normal cognition. AAOx4. Normal speech. GCS of 15. Cranial nerves II through XII grossly intact bilaterally. No pronator drift. [id number] test intact. Psychological: Normal affect. Normal Mood. Skin: Warm. Dry. Normal color. Course - Re-evaluation Re-evalutation: 01/11/20 13:05 Patient resting comfortably not showing any signs of distress at this time blood pressure has improved to around 140s over 96. Patient is not showing any signs of headache chest pain at this time. - Vital Signs Vital signs: Temp Pulse Resp BP Pulse Ox 97.6 F 47 L 12 144/124 H 100 01/11/20 09:05 01/11/20 09:51 01/11/20 12:40 01/11/20 12:40 01/11/20 12:40 - Laboratory Result Diagrams: 01/11/20 10:16 01/11/20 10:16 Laboratory results interpreted by me: 01/11/20 01/11/20 01/11/20 10:16 10:16 10:16 RDW 15.3 H Carbon Dioxide 32 H BUN 23 H NT-Pro-B Natriuret Pep 740 H Labs within normal limits. No evidence for an acute infarct on CT scan of brain and at this time. Chest x-ray also normal. - Diagnostic Test Radiology reviewed: Reports reviewed Radiology results interpreted by me: 01/11/20 13:07 Chest x-ray showing no acute process no infiltrates. CT scan of head within normal limits no evidence for infarct. - EKG Interpretation by Me Additional EKG results interpreted by me: 01/11/20 13:08 Twelve-lead EKG done at 901 today. Shows sinus bradycardia rate of 48 and questionable left atrial abnormality. Otherwise no acute process. Discharge - Discharge Clinical Impression: Hypertension, Bipolar disease, chronic Condition: Stable Disposition: HOME, SELF-CARE Instructions: High Blood Pressure, Requiring Treatment ([facility]) Forms: Elevated Blood Pressure Referrals: MORENITA KNOWLES MD [Primary Care Provider] - Follow up as needed I personally performed the services described in the documentation, reviewed and edited the documentation which was dictated to the scribe in my presence, and it accurately records my words and actions.
--- NOTE | 2020-01-11 18:16 | EKG REPORT ---
SEVERITY:- ABNORMAL ECG - SINUS BRADYCARDIA PROBABLE LEFT ATRIAL ABNORMALITY PROBABLE LEFT VENTRICULAR HYPERTROPHY : Confirmed by: Juvencio Barillas MD 11-Jan-2020 18:15:05
== END 2020-01-11 14:07 | disposition home or self-care (01) ==
LOC: ER 08:55
DX: F31.9 Bipolar disorder, unspecified (principal); I10 Essential (primary) hypertension; R51 Headache; R07.9 Chest pain, unspecified; Z90.710 Acquired absence of both cervix and uterus; H53.8 Other visual disturbances
CPT/HCPCS: 36415; 70450; 71045; 80053; 80307; 81001; 83880; 84484; 85025; 93005; 93010; 99284